=== PATIENT | female | born 1955 | race Caucasian/White ===

== ENCOUNTER 2016-10-03 06:48 | Day surgery (SDC) | payer BC ==
[2016-09-30 09:23] VITALS: BMI 25.8
[~2016-10-03 06:48] MED LIST: HYDROmorphone 1 MG/ML 1 ML SYRINGE IVP PRN; LACTATED RINGERS 1,000 ML IV SCH; MIDAZOLAM 2 MG/2 ML VIAL IV PRN; Pre Op ABX Message 1 EACH MISC MISCELLANE ONE
[2016-10-03] MEDS ORDERED: LIDOCAINE 1% 20 ML VIAL (10MG/ML) FOR IV START INTRADERMA ONE (07:17)
[2016-10-03] MEDS ORDERED: ONDANSETRON 4 MG/2 ML VIAL IVP ONE (07:22)
[2016-10-03] MEDS ORDERED: DEXAMETHASONE SOD PHOSPHATE 10 MG/ML 1 ML VIAL IV ONE (07:22)
[2016-10-03] MEDS ORDERED: fentaNYL (PF) 50 MCG/ML 2 ML AMP ONE (08:05)
[2016-10-03] MEDS ORDERED: PROPOFOL 10 MG/ML 20 ML VIAL IV ONE (08:05)
[2016-10-03] MEDS ORDERED: SUCCINYLCHOLINE CHLORIDE 100 MG/5 ML SYR IV ONE (08:05)
[2016-10-03] MEDS ORDERED: ePHEDrine 50 MG/ML 1 ML AMP ONE (08:05)
[2016-10-03] MEDS ORDERED: LIDOCAINE 1% INJ 10MG/ML (20 ML MDV) ONE (08:05)
[2016-10-03] MEDS ORDERED: MIDAZOLAM 2 MG/2 ML VIAL ONE (08:05)
[2016-10-03] MEDS ORDERED: BUPIVACAINE (PF) 0.25% 30 ML VIAL SQ ONE (08:35)
[2016-10-03] MEDS ORDERED: LACTATED RINGERS 1,000 ML IV ONE (09:00)
--- NOTE | 2016-10-03 09:09 | P.OP ---
Date of Procedure: 10/03/16 Preoperative Diagnosis: Postoperative Diagnosis: Procedure(s) Performed: PREOPERATIVE DIAGNOSIS: 1. Right knee medial meniscus tear 2. Right knee osteoarthritis, patellofemoral and medial POSTOPERATIVE DIAGNOSIS: 1. Right knee medial meniscus tear, severe posterior horn 2. Right knee osteoarthritis, patellofemoral, grade IV 3. Right knee osteoarthritis, medial, grade IV PROCEDURES PERFORMED: 1. Right knee arthroscopy, with partial medial meniscectomy (50)%, posterior horn 2. Right knee arthroscopic chondroplasty of patellofemoral and medial compartments 2. Right knee arthroscopic lysis of degenerative adhesions and partial synovectomy ANESTHESIA: legal administrative assistant: None COMPLICATIONS: none ESTIMATED BLOOD LOSS: Less than 10 ml DISPOSITION: To post-anesthesia care unit INDICATIONS: Angelita is a 61-year-old female with a history of right knee pain on the posterior medial side. She has definite arthritis of the medial and patellofemoral compartments. MRI findings are suspicious for meniscus tear involving the posterior horn of the meniscus medially. Patient presents to the operating room today for arthroscopy with trimming of the meniscus or repair as necessary as well as chondroplasty or smoothing of the articular surfaces. I have explained the procedure in detail as well as potential risks and complications as being inclusive of but not limited to: Bleeding, infection , scarring, discomfort, blood vessel and/or nerve damage, failure to relieve symptoms, need for further surgery, persistence or recurrence and/or worsening of symptoms, blood clot, pulmonary embolism, limp, , and other risks, including the need for knee replacement. The consent form has been signed. PROCEDURE: After appropriate consent was obtained, the patient was taken to the operating room and placed supine on the operating table. General anesthesia was initiated. The knee was examined under anesthesia. Medial collateral, lateral collateral, anterior and posterior cruciate ligaments were all intact. Range of motion was 0-120 with mild crepitus in the patellofemoral compartment. Mild effusion but no soft tissue swelling was noted. Prepping and draping of the operative knee was performed in the usual sterile fashion using ChloraPrep. Care was taken that all pressure points were adequately padded. Leg moura and pneumotourniquet were used. ``Time-out" was called according to [facility] standards, confirming patient identity, surgical procedure, side, and no IV antibiotics were administered. The surgical portals were placed directly next to the patellar tendon medially and laterally. Camera and instruments were carefully inserted into the knee and arthroscopy was performed. Patellofemoral joint was first inspected. Mild synovitis was seen, and was resected where it appeared particularly inflamed. Patellofemoral joint was noted to be arthritic, with grade 4 changes present over 60%. Chondroplasty was performed using a shaver, removing unstable cartilage elements and smoothing the surface to eliminate step-off. Trochlea showed similar grade 4 changes over 60% of its surface, especially centrally. Lateral compartment showed mildly degenerated hyaline cartilage without focal defect. Lateral meniscus was visualized and probed, the anterior horn showing some mild degenerative fraying. Popliteal hiatus was normal. No loose bodies. Medial compartment was then examined. Extensive medial meniscus tear was noted involving the posterior horn and appeared to be a stellate-type tear after visualization and probing. The meniscus tear was resected using a combination of basket forceps and shaver. Approximately 50 % of the meniscus was resected. The remaining meniscus was noted to be intact and stable, although severely degenerative. Medial compartment hyaline cartilage showed significant grade 4 osteoarthritic change with bone exposed over a 2 cm area on both the tibial plateau and femoral condyle. A chondral plasty was performed removing loose elements and smoothing to remove step-off. Cruciate ligaments were noted to be intact. Significant degenerative adhesions were present in the anterior compartment of the knee. These adhesions were removed using a shaver. No loose bodies or ganglion cysts were noted around the cruciate ligaments. Medial and lateral gutters showed no evidence of loose bodies, but some mild synovitis was present and was resected with a shaver. Portals were then closed with 4-0 Monocryl suture. A quantity of Marcaine solution was injected into the knee and around the portal sites. Steri-Strips were applied and tourniquet was deflated. Sterile dressing and light compressive dressing was applied using Webril and TIKA wrap. Patient tolerated the procedure well and taken to recovery room in stable condition. Sponge and needle counts were correct. Implants: Indications for Procedure: Operative Findings: Description of Procedure:
[2016-10-03 09:20] VITALS: TEMP 96.7
[2016-10-03 09:21] VITALS: RESP 16
[2016-10-03] MEDS ORDERED: KETOROLAC 30 MG/ML 1 ML VIAL IVP ONE (09:54)
[2016-10-03 10:15] VITALS: BP 121/69
[2016-10-03 10:31] VITALS: PULSE 58
== END 2016-10-03 10:50 | disposition home or self-care (01) ==
LOC: OR 06:48
PROVIDERS: ATTEND Orthopaedic Surgery
DX: S83.241A Other tear of medial meniscus, current injury, right knee, initial encounter (principal); X58.XXXA Exposure to other specified factors, initial encounter; M17.11 Unilateral primary osteoarthritis, right knee; E78.5 Hyperlipidemia, unspecified; I10 Essential (primary) hypertension; Z79.82 Long term (current) use of aspirin; Z79.899 Other long term (current) drug therapy; Z91.040 Latex allergy status; Z87.891 Personal history of nicotine dependence
CPT/HCPCS: 29881; J2250; J1100; J2405; J2001; J3010; J1885; J1170; J0330; J2704

== ENCOUNTER → 2017-01-28 | Outpatient (CLI) | payer BC ==
[2017-01-28 09:39] LABS: EKG EKG PERFORMED
[2017-01-28 10:07] LABS: CH 32.3; CHCM 34.5; HCT 40.8 % (34.0-46.0); HDW 2.53; HGB 13.7 gm/dL (11.4-16.0); MCH 31.6 pg (25.0-35.0); MCHC 33.6 g/dL (31.0-37.0); Mean Platelet Volume 7.4; RBC 4.34 m/uL (3.80-5.40); RDW 13.7 % (11.5-15.5); WBC 7.4 k/uL (3.8-10.6)
[2017-01-28 10:12] LABS: Partial Thromboplastin Time 24.1 sec (22.0-30.0); Prothrombin Time 10.1 sec (9.0-12.0)
[2017-01-28 10:42] LABS: ALT 26 U/L (9-52); AST 21 U/L (14-36); Alkaline Phosphatase 83 U/L (38-126); Anion Gap 10 mmol/L; Blood Urea Nitrogen 15 mg/dL (7-17); Calcium 9.9 mg/dL (8.4-10.2); Carbon Dioxide 27 mmol/L (22-30); Chloride 104 mmol/L (98-107); Glucose 96 mg/dL (74-99); Non-African American GFR(MDRD) 58 (>60 ml/min/1.73 sqM); Potassium 4.5 mmol/L (3.5-5.1); Sodium 141 mmol/L (137-145); Total Bilirubin 0.5 mg/dL (0.2-1.3); Total Protein 7.4 g/dL (6.3-8.2)
[2017-01-28 10:58] LABS: Appearance,Urine Clear (Clear); Bilirubin,Urine Negative (Negative); Glucose,Urine (UA) Negative (Negative); Ketones,Urine Negative (Negative); Leukocyte Esterase,Urine Negative (Negative); Nitrite,Urine Negative (Negative); Protein,Urine Negative (Negative); UA Billing (MACRO vs. MICRO) CHEM; Urobilinogen,Urine <2.0 mg/dL (<2.0)
== END | disposition home or self-care (01) ==
LOC: LABPAT 09:28
PROVIDERS: ATTEND Orthopaedic Surgery
DX: Z01.812 Encounter for preprocedural laboratory examination (principal)
CPT/HCPCS: 80053; 81003; 85027; 85610; 85730; 87070; 93005

== ENCOUNTER 2017-02-16 06:25 | Inpatient (IN) | payer BC ==
[2017-02-05 09:23] VITALS: BMI 25.8
[~2017-02-16 06:25] MED LIST changes: +ACETAMINOPHEN TAB 500 MG TAB PO ONE; +DEXAMETHASONE SOD PHOSPHATE 10 MG/ML 1 ML VIAL IV ONE; +HYDROmorphone 0.5 MG/0.5 ML SYRINGE IVP PRN; -HYDROmorphone 1 MG/ML 1 ML SYRINGE IVP PRN; -LACTATED RINGERS 1,000 ML IV SCH; +MELOXICAM 7.5 MG TAB PO ONE; -MIDAZOLAM 2 MG/2 ML VIAL IV PRN; +ONDANSETRON 4 MG/2 ML VIAL IVP ONE; -Pre Op ABX Message 1 EACH MISC MISCELLANE ONE; +TRANEXAMIC ACID 1,000 MG in SODIUM CHLORIDE 0.9% 100 ML IVPB ONE; +ceFAZolin 2 GM in SODIUM CHLORIDE 0.9% 100 ML IVPB ONE
[2017-02-16] MEDS: LACTATED RINGERS 1,000 ML IV SCH ×6 (07:30→23:15)
[2017-02-16] MEDS ORDERED: ROPIVACAINE 246.25 MG, EPINEPHrine 0.5 MG, KETOROLAC 30 MG, cloNIDine HCL/PF 80 MCG, WA... MISCELLANE ONE ×5 (07:43)
[2017-02-16] MEDS ORDERED: MIDAZOLAM 2 MG/2 ML VIAL ONE (07:57)
[2017-02-16] MEDS ORDERED: ePHEDrine SULFATE/0.9% NACL/PF 50 MG/5 ML SYRINGE IV ONE (07:57)
[2017-02-16] MEDS ORDERED: SODIUM CHLORIDE 0.9% 100 ML BAG ONE (07:57)
[2017-02-16] MEDS ORDERED: TRANEXAMIC ACID 1,000 MG/10 ML VIAL ONE (07:57)
[2017-02-16] MEDS ORDERED: diphenhydrAMINE 50 MG/ML 1 ML VIAL ONE (07:57)
[2017-02-16] MEDS ORDERED: fentaNYL (PF) 50 MCG/ML 2 ML AMP ONE (07:57)
[2017-02-16] MEDS ORDERED: PROPOFOL 10 MG/ML 20 ML VIAL IV ONE (07:57)
[2017-02-16] MEDS ORDERED: ceFAZolin 3,000 MG in SODIUM CHLORIDE 0.9% IRRIGATIO 3,000 ML IRRIGATION ONE (08:40)
[2017-02-16] MEDS ORDERED: LACTATED RINGERS 1,000 ML IV ONE (09:07)
--- NOTE | 2017-02-16 10:07 | P.OP ---
Date of Procedure: 02/16/17 Procedure(s) Performed: PREOPERATIVE DIAGNOSIS: Right knee severe osteoarthritis with genu varum POSTOPERATIVE DIAGNOSIS: Right knee severe osteoarthritis with genu varum; 2. Diminished bone quality/osteopenia/osteoporosis OPERATION: Right knee cemented total replacement arthroplasty. ANESTHESIA: Spinal ESTIMATED BLOOD LOSS: 100 ml. CREAM RIPENER: Aimee Sahu PA-C (assistance with: patient positioning, retraction, exposure, hemostasis, leg positioning, implantation, irrigation, closure, dressing) COMPLICATIONS: None apparent. COMPONENTS IMPLANTED: Persona system from [employer] with tibial stem extension INDICATIONS: Angelita is a 61-year-old female with a history of bilateral knee osteoarthritis. The patient's knees are end-stage, and conservative management has failed. The operation of right knee replacement has been discussed at length in the office, as well as potential risks and complications. These are inclusive of, but not limited to: bleeding, infection, scarring, discomfort, blood vessel and nerve damage, need for further surgery, failure to relieve symptoms, persistence, recurrence, or worsening of problems, loosening, dislocation, wear, blood clot, pulmonary embolism, , gait dysfunction, stiffness, and other risks as discussed in the office. The patient elects to proceed and the consent form has been signed. PROCEDURE: The patient was taken to the operating room and positioned on the operating room table in the supine position. Anesthesia was initiated. Care was taken to make sure that all pressure points were adequately padded. The operative lower extremity was prepped and draped in the usual aseptic fashion using ChloraPrep. Ioban drape was used for the case and the patient received intravenous antibiotics within one hour of the incision. A pneumotourniquet and leg moura were used for the case. The limb was exsanguinated with an Esmarch bandage and the tourniquet was inflated to 350 mmHg. Time-out was called confirming the patient's identity, side, procedure and administration of antibiotics. The incision was then created midline directly over the knee, carried down through skin and into the subcutaneous tissues and down to fascia. Full thickness subcutaneous medial flap was developed. Medial parapatellar arthrotomy was performed and the interior of the knee was inspected. There was end-stage osteoarthritis of the knee with a mild to moderate genu varum type deformity. The fat pad was excised and proximal medial release on the tibia was completed using meticulous dissection and a curved osteotome. The anterior cruciate ligament was taken down. Note was made of significant attrition of the anterior and significant degenerative appearance of the posterior cruciate ligaments. The exposure was excellent. The knee was flexed 90 degrees and the patella was everted. A spot was chosen on the femur approximately 1 cm anterior to the posterior cruciate ligament insertion and an intramedullary hole was created within the femur. The intramedullary guide was then set to 5 degrees of valgus. The distal cutting block was attached and pinned into position. An appropriate amount of distal femoral resection was set. The oscillating saw was then used to make the distal femoral cut. This cut was confirmed to be flat with the flat end of an osteotome. The retractors were placed around the tibia and the tibial surface was addressed. The angle and depth of resection was adjusted using an extramedullary cutting guide. The guide had a built-in 3 degree posterior slope cut. Once the cutting guide was adjusted appropriately and in line with the axis of the tibia and confirmed to be in good position in relation to the second metatarsal and transmalleolar axis, the tibial cut was then created with protection of the posterior neurovascular structures and the collateral ligaments. Note was made of diminished bone quality and therefore a short tibial stem extension was planned. The tibial cut surface was removed and sized. Femoral sizing was then accomplished using anterior referencing. Care was taken to analyze the posterior condyles for signs of deficiency or severe wear, and adjustments to the guide were made, as appropriate. 3 degree external rotation pins were placed. The cutting jig for the femur was applied to these pins. The planned cuts were further analyzed prior to performing them with the oscillating saw. No femoral notching was produced. Bone fragments were removed and the cut surfaces were finished, as necessary, with a reciprocating saw. Spacer block technique was then used to confirm that the flexion and extension gaps were equal. Soft tissue releases and adjustment of the tibial and/or femoral cuts were made, as necessary, until the gaps were equal. This included release of the posterior cruciate ligament, which was tight in this patient and , if left unreleased, would have resulted in poor kinematics and possibly early loosening. The femur was then further finished for a posterior cruciate ligament substituting component. Patellar resurfacing was performed using a reamer. The size of the required patellar component was estimated and the patellar surface was then reamed down to a residual thickness which would recreate the [place] thickness with the component. The placement of the patellar component was influenced by the degree of patellar subluxation, if any, noted on the preoperative x-rays. Prior to placing trial components, anesthetic solution consisting of ropivicaine with epinephrine, ketorolac, and clonidine was injected carefully and methodically in a grid pattern using aspiration technique into the soft tissue around the knee circumferentially, starting with the deeper tissues first and progressing to fascia, and then finally the skin/subcutaneous tissue. Particular care was taken when injecting the posterior capsule. The trial components were inserted. The tibial tray was allowed to self center and the patella was noted to track very well. The position of the tibial component was marked and the tibia was then finished for a stemmed tibial component. Cement was mixed on the back table and applied to the final components. Trial components were removed and the cut surfaces of the bone were pulse lavaged thoroughly and dried. Cement was then applied to the tibial surface and pressurized into the surface using finger pressurization technique. The tibial component with stem extension was then applied and excess cement was removed after it was impacted securely and noted to be flush with the cut surface. In similar fashion, the cement was applied to the cut femoral surface, pressurized in using finger pressurization and the component was impacted into place. Excess cement was removed. The polyethylene spacer was then implanted and locked into position. The patellar component was then applied in similar technique and a patellar clamp was used to hold the patella in place as the cement hardened. Once the cement had fully hardened, the knee was reinspected. Any other cement extrusion was removed and final kinematic testing showed range of motion from 0 to 130 degrees with excellent stability, both medially and laterally and appropriate alignment of the leg. Patellar tracking was excellent. The knee was then thoroughly pulse lavaged with normal saline. The tourniquet was deflated and hemostasis was obtained with electrocautery and IV tranexamic acid, 1 g given at the start of the operation and 1 g at the start of closure. Closure was with #2 Ethibond in the fascia/capsule and supplemented with #2 Quill, 2-0 Vicryl suture was used for the subcutaneous tissues and 3-0 Quill for the skin. Dermabond/Steri-Strips were then applied. A lightly compressive dressing was applied using Webril and an Abhinav wrap. The patient was then transferred to [facility] and taken to the recovery room in stable condition. Sponge and needle counts were correct.
[2017-02-16] MEDS ORDERED: MAGNESIUM HYDROXIDE 2,400 MG/10 ML CUP PO PRN (10:12)
[2017-02-16] MEDS ORDERED: ONDANSETRON 4 MG/2 ML VIAL IVP PRN (10:12)
[2017-02-16] MEDS ORDERED: NA PHOS,M-B/NA PHOS,DI-BA 133 ML ENEMA RECTAL PRN (10:12)
[2017-02-16] MEDS ORDERED: hydrOXYzine PAMOATE 25 MG CAP PO PRN (10:12)
[2017-02-16] MEDS ORDERED: ACETAMINOPHEN TAB 325 MG TAB PO PRN (10:12)
[2017-02-16] MEDS ORDERED: NALOXONE 0.4 MG/ML 1 ML VIAL IV PRN (10:12)
[2017-02-16] MEDS ORDERED: BISACODYL 10 MG SUPP RECTAL PRN (10:12)
[2017-02-16] MEDS ORDERED: HYDROmorphone 0.5 MG/0.5 ML SYRINGE IVP PRN ×2 (10:12)
[2017-02-16 10:23] VITALS: RESP 16
--- NOTE | 2017-02-16 11:07 | XR ---
EXAMINATION TYPE: XR knee limited RT DATE OF EXAM: 02/16/2017 COMPARISON: NONE TECHNIQUE: Two views submitted HISTORY: Post op FINDINGS: There is a prosthetic knee in near anatomic alignment. There is soft tissue edema and emphysema. IMPRESSION: 1. Postoperative change. Appears in near-anatomic alignment
--- NOTE | 2017-02-16 14:34 | P.CONS ---
History of Present Illness - Reason for Consult postoperative complication management - History of Present Illness patient was admitted for elective right knee arthroplasty successfully underwent surgery patient denied any fever, chills, nausea, vomiting patient denied any dysuria fever chills no postoperative complications. Patient is in metoprolol as a preventative measure for postoperative myocardial infarction, which is appropriate although patient's migraine exacerbations is significantly low since beta marisol because of which patient is wishing to continue that medication. Review of Systems REVIEW OF SYSTEMS: CONSTITUTIONAL: No fever, no malaise, no fatigue. HEENT: No recent visual problems or hearing problems. Denied any sore throat. CARDIOVASCULAR: No chest pain, orthopnea, PND, no palpitations, no syncope. PULMONARY: No shortness of breath, no cough, no hemoptysis. GASTROINTESTINAL: No diarrhea, no nausea, no vomiting, no abdominal pain. Normoactive bowel sounds. NEUROLOGICAL: No headaches, no weakness, no numbness. HEMATOLOGICAL: Denies any bleeding or petechiae. GENITOURINARY: Denies any burning micturition, frequency, or urgency. MUSCULOSKELETAL/RHEUMATOLOGICAL: Denies any joint pain, swelling, or any muscle pain. ENDOCRINE: Denies any polyuria or polydipsia. The rest of the 14-point review of systems is negative. Past Medical History Past Medical History: Hyperlipidemia, Osteoarthritis (OA), Skin Disorder Additional Past Medical History / Comment(s): Migraines, had iovera tx rt knee , dry eyes History of Any Multi-Drug Resistant Organisms: None Reported Past Surgical History: Adenoidectomy, Breast Surgery, Hysterectomy, Orthopedic Surgery, Tonsillectomy Additional Past Surgical History / Comment(s): L Breast I&D; cysts above rt eye removed; colonoscopies, rt knee arthrscopy Past Anesthesia/Blood Transfusion Reactions: Motion Sickness Smoking Status: Former smoker - Past Family History Father Family Medical History: Cancer Additional Family Medical History / Comment(s): colon Mother Family Medical History: Cancer Additional Family Medical History / Comment(s): thyrioid Medications and Allergies Home Medications Medication Instructions Recorded Confirmed Type Aspirin 81 mg PO DAILY 09/30/16 02/16/17 History Fish Oil/Dha/Epa [Fish Oil 1,200 1 cap PO DAILY 09/30/16 02/16/17 History mg Fish Oil] Magnesium 400 mg PO DAILY 09/30/16 02/16/17 History Rizatriptan Benzoate [Maxalt] 10 mg PO DAILY PRN 09/30/16 02/16/17 History Simvastatin 40 mg PO HS 09/30/16 02/16/17 History Ubidecarenone [Co Q-10] 200 mg PO DAILY 09/30/16 02/16/17 History Loratadine [Claritin] 10 mg PO DAILY PRN 10/03/16 02/16/17 History Cholecalciferol [Vitamin D3] 1,000 unit PO DAILY 02/05/17 02/16/17 History Glucosam/Corbin-Msm1/C/Ry/Bosw 1 tab PO BID 02/05/17 02/16/17 History [Glucosamine-Chondroitin Tablet] Metoprolol Tartrate [Lopressor] 12.5 mg PO HS 02/05/17 02/16/17 History Naproxen Sodium [Aleve] 220 mg PO BID 02/05/17 02/16/17 History Aspirin 325 mg PO BID #120 tab 02/16/17 Rx HYDROcodone/APAP 5-325MG [[place] 1 - 2 each PO Q4-6H PRN #90 tab 02/16/17 Rx 5-325] HYDROcodone/APAP 7.5-325MG [[place] 1 - 2 tab PO Q6HR PRN 02/16/17 02/16/17 History 7.5] Sennosides-Docusate Sodium 1 tab PO BID #60 tablet 02/16/17 Rx [Senokot-S] Allergies Allergy/AdvReac Type Severity Reaction Status Date / Time latex Allergy Anaphylaxis Verified 02/16/17 06:48 Physical Exam Vitals: Vital Signs Temp Pulse Resp BP Pulse Ox 02/16/17 11:00 67 16 121/64 100 02/16/17 10:45 68 16 123/64 100 02/16/17 10:31 84 16 128/62 97 02/16/17 10:20 89 16 111/57 95 02/16/17 10:11 97.8 F 87 16 115/55 93 L 02/16/17 07:03 97.7 F 82 18 149/74 99 Intake and Output 02/15/17 02/16/17 02/16/17 22:59 06:59 14:59 Intake Total 1401 Output Total 20 Balance 1381 Intake: IV 1401 Output: Estimated Blood Loss 20 PHYSICAL EXAMINATION: GENERAL: The patient is alert and oriented x3, not in any acute distress. Well developed, well nourished. HEENT: Pupils are round and equally reacting to light. EOMI. No scleral icterus. No conjunctival pallor. Normocephalic, atraumatic. No pharyngeal erythema. No thyromegaly. CARDIOVASCULAR: S1 and S2 present. No murmurs, rubs, or gallops. PULMONARY: Chest is clear to auscultation, no wheezing or crackles. ABDOMEN: Soft, nontender, nondistended, normoactive bowel sounds. No palpable organomegaly. MUSCULOSKELETAL: deferred to orthopedic surgery EXTREMITIES: No cyanosis, clubbing, or pedal edema. NEUROLOGICAL: Gross neurological examination did not reveal any focal deficits. SKIN: No rashes. Assessment and Plan Plan: #1 postoperative day 0 elective right knee arthroplasty: Pain management and DVT prophylaxis as per primary service. #2 migraine without any acute exacerbation continue with metoprolol. #3hyperlipidemia patient can be resumed on statin. #4 severe osteoarthritis: Patient will benefit from vitamin D and calcium Supplementation at home thank you for letting me participate in the patient's care will can you to follow on as-needed basis.
[2017-02-16] MEDS: ceFAZolin 2 GM in SODIUM CHLORIDE 0.9% 100 ML IVPB SCH (17:00)
[2017-02-16] MEDS: ASPIRIN 325 MG TAB PO SCH (20:09)
[2017-02-16] MEDS: HYDROcodone/APAP 5-325MG 1 EACH TAB PO PRN (20:09)
[2017-02-16] MEDS ORDERED: SENNOSIDES-DOCUSATE SODIUM 1 EACH TAB PO SCH (21:00)
[2017-02-16] MEDS ORDERED: TEMAZEPAM 15 MG CAP PO PRN (22:00)
[2017-02-17] MEDS: ceFAZolin 2 GM in SODIUM CHLORIDE 0.9% 100 ML IVPB SCH (00:20)
[2017-02-17 02:07] VITALS: TEMP 98.2
[2017-02-17] MEDS: HYDROcodone/APAP 5-325MG 1 EACH TAB PO PRN ×4 (02:34→13:37)
[2017-02-17 07:18] LABS: Basophils % (A) 0 %; CH 31.7; CHCM 32.3; Eosinophils % (A) 0 %; HCT 34.1 % (34.0-46.0); HDW 2.35; HGB 11.1 gm/dL (11.4-16.0); Luc # (Auto) 0.12; Luc % (Auto) 1; Lymphocytes # (A) 1.7 k/uL (1.0-4.8); Lymphocytes % (A) 16 %; MCHC 32.5 g/dL (31.0-37.0); MCV 98.6 fL (80.0-100.0); Mean Platelet Volume 7.4; Monocytes # (A) 0.7 k/uL (0-1.0); Monocytes % (A) 6 %; Neutrophils # (A) 8.7 k/uL (1.3-7.7); Neutrophils % (A) 77 %; RBC 3.46 m/uL (3.80-5.40); WBC 11.3 k/uL (3.8-10.6); WBC (Perox) 11.95
[2017-02-17] MEDS: ASPIRIN 325 MG TAB PO SCH (08:35)
[2017-02-17] MEDS ORDERED: MELOXICAM 7.5 MG TAB PO SCH (09:00)
--- NOTE | 2017-02-17 09:36 | P.DS ---
Providers Date of admission: 02/16/17 06:25 Expected date of discharge: 02/17/17 Attending physician: Price Maynard Consults: 02/16/17 10:12 Consult Physician Routine Consulting Provider: Brenda Fine Consult Reason/Comments: medical management Do you want consulting provider notified?: Yes Primary care physician: Sara Norris Procedures: Patient was admitted to the OR on 02/16/2017 to undergo right total knee arthroplasty. She had failed conservative measures as an outpatient and desired proceed with surgical intervention. She underwent the above procedure which she tolerated well without complication. Her postoperative hospital course has remained without competition. On day of discharge she is afebrile, vital signs stable, labs within acceptable ranges, wound is benign, neurovascular status intact, abdomen soft and nontender, calf soft and nontender , adequate perfusion distally, denying new complaints. Review of systems is negative for numbness, tingling, fever, chills, chest pain, shortness of breath , nausea, vomiting, dizziness, headaches, slurred speech or other. Patient Condition at Discharge: Good Plan - Discharge Summary New Discharge Prescriptions: New Aspirin 325 mg PO BID #120 tab HYDROcodone/APAP 5-325MG [[place] 5-325] 1 - 2 each PO Q4-6H PRN #90 tab PRN Reason: Pain Sennosides-Docusate Sodium [Senokot-S] 1 tab PO BID #60 tablet No Action Ubidecarenone [Co Q-10] 200 mg PO DAILY Simvastatin 40 mg PO HS Rizatriptan Benzoate [Maxalt] 10 mg PO DAILY PRN PRN Reason: migraines Magnesium 400 mg PO DAILY Fish Oil/Dha/Epa [Fish Oil 1,200 mg Fish Oil] 1 cap PO DAILY Aspirin 81 mg PO DAILY Loratadine [Claritin] 10 mg PO DAILY PRN PRN Reason: Allergy Symptoms Naproxen Sodium [Aleve] 220 mg PO BID Glucosam/Corbin-Msm1/C/Ry/Bosw [Glucosamine-Chondroitin Tablet] 1 tab PO BID Cholecalciferol [Vitamin D3] 1,000 unit PO DAILY Metoprolol Tartrate [Lopressor] 12.5 mg PO HS HYDROcodone/APAP 7.5-325MG [[place] 7.5] 1 - 2 tab PO Q6HR PRN PRN Reason: Pain Discharge Medication List Aspirin 81 mg PO DAILY 05/23/17 [History] Fish Oil/Dha/Epa [Fish Oil 1,200 mg Fish Oil] 1 cap PO DAILY 09/30/16 [History] Magnesium 400 mg PO DAILY 09/30/16 [History] Rizatriptan Benzoate [Maxalt] 10 mg PO DAILY PRN 09/30/16 [History] Simvastatin 40 mg PO HS 09/30/16 [History] Ubidecarenone [Co Q-10] 200 mg PO DAILY 09/30/16 [History] Loratadine [Claritin] 10 mg PO DAILY PRN 10/03/16 [History] Cholecalciferol [Vitamin D3] 1,000 unit PO DAILY 02/05/17 [History] Glucosam/Corbin-Msm1/C/Ry/Bosw [Glucosamine-Chondroitin Tablet] 1 tab PO BID [History] Metoprolol Tartrate [Lopressor] 12.5 mg PO HS 02/05/17 [History] Naproxen Sodium [Aleve] 220 mg PO BID 02/05/17 [History] Aspirin 325 mg PO BID #120 tab 02/16/17 [Rx] HYDROcodone/APAP 5-325MG [[place] 5-325] 1 - 2 each PO Q4-6H PRN #90 tab 02/16/17 [Rx] HYDROcodone/APAP 7.5-325MG [[place] 7.5] 1 - 2 tab PO Q6HR PRN 02/16/17 [History] Sennosides-Docusate Sodium [Senokot-S] 1 tab PO BID #60 tablet 02/16/17 [Rx] Follow up Appointment(s)/Referral(s): Aimee Sahu, PAC [PHYSIC[facility]] - 2 Weeks Ambulatory/Diagnostic Orders: Continuous Passive Motion (CPM) Machine [DME.AMB1] Time Frame: 3 Weeks, Facility : [facility], Location: Case Management Activity/Diet/Wound Care/Special Instructions: May bear wt as tolerated with walker. May shower if no drainage from incision. CPM 5-6h daily. Discharge Disposition: HOME WITH HOME HEALTH SERVICES
[2017-02-17] MEDS ORDERED: MULTIVITAMINS, THERA 1 EACH TAB PO SCH (12:00)
[2017-02-17 12:20] VITALS: BP 115/65; PULSE 80
== END 2017-02-17 14:00 | disposition home health service (06) | DRG 470 ==
LOC: 2ORMAIN 06:25 → 3SUR 10:08
PROVIDERS: ADMIT Orthopaedic Surgery; ATTEND Orthopaedic Surgery
PROC: 0SRC0J9 Replacement of Right Knee Joint with Synthetic Substitute, Cemented, Open Approach (ICD-10-PCS; principal; 2017-02-16 08:00)
DX: M17.0 Bilateral primary osteoarthritis of knee (principal); E78.5 Hyperlipidemia, unspecified; Z79.82 Long term (current) use of aspirin; Z79.899 Other long term (current) drug therapy; Z91.040 Latex allergy status; Z87.891 Personal history of nicotine dependence; G43.909 Migraine, unspecified, not intractable, without status migrainosus; M81.0 Age-related osteoporosis without current pathological fracture; Z90.01 Acquired absence of eye; M21.161 Varus deformity, not elsewhere classified, right knee
CPT/HCPCS: 85025; 88300

== ENCOUNTER 2018-04-16 09:37 | Day surgery (SDC) | payer BC ==
[2018-04-14 13:33] VITALS: BMI 27.4
[~2018-04-16 09:37] MED LIST changes: -ACETAMINOPHEN TAB 500 MG TAB PO ONE; -DEXAMETHASONE SOD PHOSPHATE 10 MG/ML 1 ML VIAL IV ONE; -HYDROmorphone 0.5 MG/0.5 ML SYRINGE IVP PRN; +LACTATED RINGERS 1,000 ML IV SCH; -MELOXICAM 7.5 MG TAB PO ONE; -ONDANSETRON 4 MG/2 ML VIAL IVP ONE; -TRANEXAMIC ACID 1,000 MG in SODIUM CHLORIDE 0.9% 100 ML IVPB ONE; -ceFAZolin 2 GM in SODIUM CHLORIDE 0.9% 100 ML IVPB ONE
[2018-04-16 10:36] VITALS: RESP 16; TEMP 98.2
[2018-04-16] MEDS ORDERED: PROPOFOL 10 MG/ML 20 ML VIAL IV ONE (11:26)
--- NOTE | 2018-04-16 11:43 | P.PCN ---
Date of Procedure: 04/16/18 Procedure(s) Performed: BRIEF HISTORY: Patient is a 62-year-old pleasant white male, scheduled for an elective colonoscopy as a part of screening for colorectal neoplasia. She does have colon cancer in father diagnosed at age 63. PROCEDURE PERFORMED: Colonoscopy. PREOPERATIVE DIAGNOSIS: Screening for colon cancer/family history of colon cancer. IV sedation per Anesthesia. PROCEDURE: After informed consent was obtained, the patient, was brought into the endoscopy unit. IV sedation was administered by Anesthesia under continuous monitoring. Digital rectal examination was normal. Initially the Olympus CF- 160 flexible video colonoscope was then inserted in the rectum, gradually advanced into the cecum without any difficulty. Careful examination was performed as the scope was gradually being withdrawn. Ileocecal valve and the appendiceal orifice were visualized and appeared normal. Prep was excellent. Mucosa of the cecum, ascending colon, transverse colon, descending colon, sigmoid colon, and rectum appeared normal. Retroflexion was performed in the rectum and no lesions were seen. The patient tolerated the procedure well. IMPRESSION: Normal-appearing colon from rectum to cecum with no evidence of colorectal neoplasia. RECOMMENDATIONS: Findings of this examination were discussed with the patient well as her family. She was advised to have a repeat screening colonoscopy in 5 years because of the family history of colon cancer.
[2018-04-16 12:03] VITALS: BP 116/78; PULSE 69
== END 2018-04-16 12:25 | disposition home or self-care (01) ==
LOC: ORWHC2ENDO 09:37
PROVIDERS: ATTEND Internal Medicine Gastroenterology
DX: Z12.11 Encounter for screening for malignant neoplasm of colon (principal); Z80.0 Family history of malignant neoplasm of digestive organs; I10 Essential (primary) hypertension; E78.5 Hyperlipidemia, unspecified; M19.90 Unspecified osteoarthritis, unspecified site; Z79.899 Other long term (current) drug therapy; Z79.82 Long term (current) use of aspirin; Z91.040 Latex allergy status
CPT/HCPCS: J2704; G0105

== ENCOUNTER → 2018-09-20 | Outpatient (CLI) | payer BC ==
--- NOTE | 2018-09-21 14:36 | MM ---
Reason for exam: screening (asymptomatic). Last mammogram was performed 1 year and 5 months ago. History: Patient is postmenopausal. Family history of breast cancer in maternal grandmother and breast cancer in maternal cousin. Physical Findings: A clinical breast exam by your physician is recommended on an annual basis and results should be correlated with mammographic findings. MG 3D Screening Mammo W/Cad Bilateral CC and MLO view(s) were taken. Prior study comparison: April 15, 2017, bilateral MG 3d screening mammo w/cad. March 12, 2016, mammogram, performed at [facility]. The breast tissue is heterogeneously dense. This may lower the sensitivity of mammography. No suspicious abnormality. No significant changes when compared with prior studies. ASSESSMENT: Negative, BI-RAD 1 RECOMMENDATION: Routine screening mammogram of both breasts in 1 year.
== END | disposition home or self-care (01) ==
LOC: RADMAMWWP 10:03
PROVIDERS: ATTEND Internal Medicine
DX: Z12.31 Encounter for screening mammogram for malignant neoplasm of breast (principal)
CPT/HCPCS: 77063; 77067

== ENCOUNTER → 2020-03-16 | Outpatient (CLI) | payer MEDICARE ==
--- NOTE | 2020-03-19 11:03 | MM ---
Reason for exam: screening (asymptomatic). Last mammogram was performed 1 year and 6 months ago. History: Patient is postmenopausal. Family history of breast cancer in maternal grandmother and breast cancer in maternal cousin. Physical Findings: A clinical breast exam by your physician is recommended on an annual basis and results should be correlated with mammographic findings. MG 3D Screening Mammo W/Cad Bilateral CC and MLO view(s) were taken. Prior study comparison: September 20, 2018, bilateral MG 3d screening mammo w/cad. April 15, 2017, bilateral MG 3d screening mammo w/cad. There are scattered fibroglandular densities. There is no discrete abnormality. No significant changes when compared with prior studies. ASSESSMENT: Negative, BI-RAD 1 RECOMMENDATION: Routine screening mammogram of both breasts in 1 year.
== END | disposition home or self-care (01) ==
LOC: RADMAMWWP 10:47
PROVIDERS: ATTEND Internal Medicine
DX: Z12.31 Encounter for screening mammogram for malignant neoplasm of breast (principal)
CPT/HCPCS: 77063; 77067

== ENCOUNTER → 2021-03-22 | Outpatient (CLI) | payer MEDICARE ==
--- NOTE | 2021-03-25 11:03 | MM ---
Reason for exam: screening (asymptomatic). Last mammogram was performed 1 year ago. History: Patient is postmenopausal. Family history of breast cancer in maternal grandmother at age 30 and breast cancer in maternal cousin at age 30. Physical Findings: A clinical breast exam by your physician is recommended on an annual basis and results should be correlated with mammographic findings. MG 3D Screening Mammo W/Cad Bilateral CC and MLO view(s) were taken. Prior study comparison: March 16, 2020, bilateral MG 3d screening mammo w/cad. September 20, 2018, bilateral MG 3d screening mammo w/cad. There are scattered fibroglandular densities. No significant changes when compared with prior studies. ASSESSMENT: Benign, BI-RAD 2 RECOMMENDATION: Routine screening mammogram of both breasts in 1 year.
== END | disposition home or self-care (01) ==
LOC: RADMAMWWP 07:13
PROVIDERS: ATTEND Internal Medicine
DX: Z12.31 Encounter for screening mammogram for malignant neoplasm of breast (principal); Z78.0 Asymptomatic menopausal state; Z80.3 Family history of malignant neoplasm of breast
CPT/HCPCS: 77063; 77067

== ENCOUNTER → 2022-04-18 | Outpatient (CLI) | payer MEDICARE ==
--- NOTE | 2022-04-21 10:36 | MM ---
Reason for Exam: Screening (asymptomatic). Last mammogram was performed 1 year(s) and 1 month(s) ago. Patient History: Menarche at age 9. First Full-Term at age 19. Hysterectomy at age 36. Postmenopausal. Patient has history of breast feeding. Maternal grandmother had breast cancer, age 30. Maternal cousin had breast cancer, age 30. Risk Values: [place] 5 year model risk: 1.7%. NCI Lifetime model risk: 5.7%. Prior Study Comparison: 09/20/2018 Bilateral Screening Mammogram, [facility]. 03/16/2020 Bilateral Screening Mammogram, [facility]. 03/22/2021 Bilateral Screening Mammogram, [facility]. Tissue Density: There are scattered fibroglandular densities. Findings: Analyzed By CAD. There is no suspicious group of microcalcifications or new suspicious mass in either breast. Overall Assessment: Negative, BI-RAD 1 Management: Screening Mammogram of both breasts in 1 year. A clinical breast exam by your physician is recommended on an annual basis and results should be correlated with mammographic findings. [facility] will attempt to contact patient to return for supplemental views and ultrasound if indicated. Electronically signed and approved by: Ron Winston DO
== END | disposition home or self-care (01) ==
LOC: RADMAMWWP 09:42
PROVIDERS: ATTEND Internal Medicine
DX: Z12.31 Encounter for screening mammogram for malignant neoplasm of breast (principal); Z78.0 Asymptomatic menopausal state; Z80.3 Family history of malignant neoplasm of breast
CPT/HCPCS: 77063; 77067

== ENCOUNTER → 2023-04-10 | Outpatient (CLI) | payer MEDICARE ==
[2023-04-10 11:03] LABS: INR 0.9 (<1.2); Partial Thromboplastin Time 25.1 sec (22.0-30.0); Prothrombin Time 10.3 sec (10.0-12.5)
[2023-04-10 15:36] LABS: HCT 41.5 % (37.2-46.3); HGB 13.4 g/dL (12.0-15.0); MCH 30.8 pg (27.0-32.0); MCHC 32.3 g/dL (32.0-37.0); MCV 95.4 FL (80.0-97.0); Mean Platelet Volume 9.8 FL (9.5-12.2); NRBC Per 100 WBC 0 X 10*3/uL (0.00-0.01); Platelet Count 365 X 10*3/uL (140-440); RBC 4.35 X 10*6/uL (4.10-5.20); RDW 12.8 % (11.5-14.5); WBC 6.23 X 10*3/uL (4.50-10.00)
[2023-04-10 15:58] LABS: ALT 12 U/L (8-44); AST 19 U/L (13-35); Albumin 4.6 g/dL (3.8-4.9); Albumin/Globulin Ratio 1.92 Ratio (1.60-3.17); Alkaline Phosphatase 90 U/L (41-126); Blood Urea Nitrogen 15.3 mg/dL (9.0-27.0); Calcium 10.1 mg/dL (8.7-10.3); Carbon Dioxide 26.4 mmol/L (21.6-31.8); Chloride 104 mmol/L (96-109); Globulin 2.4 g/dL (1.6-3.3); Glucose 96 mg/dL (70-110); Potassium 4.3 mmol/L (3.5-5.5); Sodium 141 mmol/L (135-145); Total Bilirubin 0.3 mg/dL (0.3-1.2)
[2023-04-10 16:30] LABS: Appearance,Urine Clear (Clear); Bilirubin,Urine Negative (Negative); Blood,Urine Negative (Negative); Color,Urine Yellow (Yellow); Ketones,Urine Negative (Negative); Nitrite,Urine Negative (Negative); Specific Gravity,Urine 1.008 (1.001-1.030); Urobilinogen,Urine 0.2 E.U./DL
== END | disposition home or self-care (01) ==
LOC: LABPAT 09:44
PROVIDERS: ATTEND Orthopaedic Surgery
DX: Z01.812 Encounter for preprocedural laboratory examination (principal); I10 Essential (primary) hypertension; M16.12 Unilateral primary osteoarthritis, left hip; E78.00 Pure hypercholesterolemia, unspecified; E55.9 Vitamin D deficiency, unspecified; R53.83 Other fatigue
CPT/HCPCS: 36415; 80053; 81003; 85027; 85610; 85730; 86850; 86900; 86901; 87070; 93005

== ENCOUNTER 2023-04-22 13:55 | Day surgery (SDC) | payer MEDICARE ==
[2023-04-16 11:02] VITALS: BMI 28.5
[~2023-04-22 13:55] MED LIST changes: +DEXAMETHASONE SOD PHOSPHATE 4 MG/ML 1 ML VIAL IV ONE; -LACTATED RINGERS 1,000 ML IV SCH; +LIDOCAINE 1% (10MG/ML) FOR IV START INTRADERMA PRN; +MIDAZOLAM 2 MG/2 ML VIAL IV PRN; +ONDANSETRON 4 MG/2 ML VIAL IVP ONE; +ONDANSETRON 4 MG/2 ML VIAL IVP PRN; +TRANEXAMIC 1,000 MG/100ML-NACL 1,000 MG in SALINE 1 100ML.BAG IV PRN; +TRANEXAMIC 1,000 MG/100ML-NACL 1,000 MG in SALINE 1 100ML.BAG IVPB PRN
[2023-04-22] MEDS: oxyCODONE ER 10 MG TAB.ER.12H PO PRN ×2 (14:45→14:52)
[2023-04-22] MEDS: ACETAMINOPHEN TAB 500 MG TAB PO PRN ×2 (14:45→14:52)
[2023-04-22] MEDS: DOCUSATE 100 MG CAP PO PRN ×2 (14:45→14:52)
[2023-04-22] MEDS: DEXAMETHASONE SOD PHOSPHATE 10 MG/ML 1 ML VIAL IV PRN ×2 (14:46→14:52)
[2023-04-22] MEDS: FAMOTIDINE 20 MG/2 ML VIAL IVP PRN ×2 (14:47→14:52)
[2023-04-22] MEDS: KETOROLAC 15 MG/ML 1 ML VIAL IVP PRN ×2 (14:48→14:52)
[2023-04-22] MEDS: LACTATED RINGERS 1,000 ML IV SCH ×2 (14:52→20:08)
[2023-04-22] MEDS ORDERED: MIDAZOLAM 2 MG/2 ML VIAL IVP ONE (14:56)
[2023-04-22] MEDS ORDERED: fentaNYL (PF) 50 MCG/1 ML VIAL IVP ONE (14:57)
[2023-04-22] MEDS ORDERED: GLYCOPYRROLATE 0.2 MG/ML 2 ML VIAL ONE (16:13)
[2023-04-22] MEDS ORDERED: TRANEXAMIC 1,000 MG/100ML-NACL PREMIX BAG ONE (16:13)
[2023-04-22] MEDS ORDERED: fentaNYL (PF) 50 MCG/ML 2 ML AMP ONE (16:13)
[2023-04-22] MEDS ORDERED: LIDOCAINE 1% INJ 10MG/ML (20 ML MDV) ONE (16:13)
[2023-04-22] MEDS ORDERED: PROPOFOL 10 MG/ML 20 ML VIAL IV ONE (16:13)
[2023-04-22] MEDS ORDERED: ROPIVACAINE 5 MG/ML 30 ML VIAL ONE (16:13)
[2023-04-22] MEDS ORDERED: MIDAZOLAM 2 MG/2 ML VIAL ONE (16:13)
[2023-04-22] MEDS ORDERED: SUCCINYLCHOLINE CHLORIDE 200 MG/10 ML VIAL IV ONE (16:13)
[2023-04-22] MEDS ORDERED: NEOSTIGMINE 1 MG/ML 10 ML VIAL ONE (16:13)
[2023-04-22] MEDS ORDERED: ROCURONIUM 10 MG/ML (5 ML VIAL) IV ONE (16:13)
[2023-04-22] MEDS: ROPIVACAINE/EPI/CLONIDINE/KET 50 ML SYRINGE MISCELLANE PRN ×2 (16:58→18:10)
[2023-04-22] MEDS ORDERED: LACTATED RINGERS 1,000 ML IV ONE ×2 (16:59)
--- NOTE | 2023-04-22 18:18 | P.ANPRN ---
Procedure Note - Anesthesia - Nerve Block Performed Left Jose R Single Date of Procedure: 04/22/23 Procedure Start Time: 14:56 Procedure Stop Time: 15:10 Location of Patient: PreOp Indication: Acute Post-Operative Pain, Requested by Surgeon Sedation Type: Sedate with meaningful contact maintained Preparation: Sterile Prep Position: Supine Needle Types: Pajunk Needle Gauge: 21 Ultrasound used to visualize needle placement: Yes Ultrasound used to observe medication spread: Yes Injectate: 0.5% Ropivacaine (see comment for volume) Blood Aspirated: No Pain Paresthesia on Injection Noted: No Resistance on Injection: Normal Image Stored and Saved: Yes Events: Uneventful and Well Tolerated
[2023-04-22] MEDS ORDERED: diazePAM 5 MG TAB PO PRN (18:45)
[2023-04-22] MEDS ORDERED: NALOXONE 0.4 MG/ML 1 ML VIAL IV PRN (18:45)
[2023-04-22] MEDS ORDERED: HYDROcodone/APAP 5-325MG 1 EACH TAB PO PRN (18:45)
[2023-04-22] MEDS ORDERED: HYDROcodone/APAP 10-325MG 1 EACH TAB PO PRN (18:45)
[2023-04-22] MEDS ORDERED: ONDANSETRON 4 MG/2 ML VIAL IVP PRN (18:45)
[2023-04-22] MEDS ORDERED: MAGNESIUM HYDROXIDE 2,400 MG/30 ML CUP PO PRN (18:45)
[2023-04-22] MEDS ORDERED: HYDROmorphone 1 MG/ML 1 ML SYRINGE IVP PRN (18:45)
[2023-04-22] MEDS ORDERED: hydrOXYzine pamoate 25 MG CAP PO PRN (18:45)
--- NOTE | 2023-04-22 18:45 | P.OP ---
Date of Procedure: 04/22/23 Preoperative Diagnosis: Severe left hip osteoarthritis Postoperative Diagnosis: Same Procedure(s) Performed: Left direct anterior total hip arthroplasty Implants: 1. Matthews Trident II Acetabular Cup, Size #52 2. Staci Insignia Size #5 Femoral Stem, High Offset 3. Biolox delta femoral head, 36 mm, - 5 mm neck Anesthesia: JINA, regional Surgeon: Roger Hunt Estimated Blood Loss (ml): 200 IV fluids (ml): 1,100 Pathology: none sent Condition: stable Disposition: PACU Indications for Procedure: I had a long discussion with the patient in the office on the potential risks and complications of an elective total hip replacement through a direct anterior approach. Risks discussed include, but are certainly not limited to, risks from anesthesia, superficial infection requiring local wound care or antibiotics, deep jein-prosthetic joint infection and the treatment required to eradicate infection, intraoperative fracture, postoperative periprosthetic fracture, damage to local blood vessels or nerves particularly the lateral femoral cutaneous nerve, delayed wound healing requiring local wound care or possibly surgical debridement, hip dislocation, leg length discrepancy, soft tissue irritation around the total hip implant such as iliopsoas tendinitis or trochanteric bursitis, wear and osteolysis from the implants, squeaking or audible noises, groin pain, thigh pain, heterotopic ossification, stiffness, ase ptic loosening of the implants, dissatisfaction with surgical outcome, need for revision surgery, DVT, PE, swelling of the operative extremity, acute coronary event, stroke, failure to thrive, and possibly loss of life or limb. The patient understands that while these are the most common complications after an elective hip replacement there are certainly other less common complications possible. They were given ample time to ask questions regarding the potential complications of a hip replacement. Following our discussion the patient provided their verbal and written consent to go forward with an elective total hip replacement. Operative Findings: Arthritic changes throughout the hip with full-thickness cartilage loss on the superior weightbearing portion of femoral head and diffuse arthritic changes throughout the acetabulum Description of Procedure: The patient was identified in the preoperative holding area and the correct hip was marked with my initials. I reviewed the procedure and consent with the patient. All of their questions were answered. The patient was then brought back into the operating room by anesthesia. While on the [facility] anesthesia was administered by the anesthesia team. Preoperative antibiotics and tranexamic acid were also given. After the patient was under anesthesia I examined their ankles to determine their preoperative leg length discrepancy. The skin over the anterior aspect of the hip was shaved to remove hair over the site of planned incision. Both feet and ankles were padded with webril and boots for the Providence were applied. The patient was then carefully transferred onto the [place] table. A perineal post was immediately placed. The arms were placed on arm holders and were well-padded. Both boots were secured to the spars on the Providence table. The patient was positioned so that the pelvis was centered over the post. Nonsterile drapes were applied. A timeout was performed identifying the correct patient, operative extremity, and procedure. At this point fluoroscopy was brought in to take preoperative images of the pelvis and operative hip. Using the standing AP pelvis from the office as a template, a comparable image was obtained with fluoroscopy. A metallic bar was used to create a bi-ischial line for use as a reference to leg length adjustments during the procedure. Global offset was also measured on both the operative and nonoperative leg. Fluoroscopy was then brought out and a pre-scrub using a chlorhexidine scrub brush was performed. The operative limb was then prepped and draped in the standard sterile fashion. An anterior longitudinal incision was made lateral and distal to the ASIS. The skin and subcutaneous tissues were incised sharply. The underlying tensor fascia was identified and incised in its midportion. The fascia was dissected free from the underlying muscle and the muscle belly was retracted. A blunt tipped cobra retractor was placed over the superior neck under the muscle fibers of the gluteus minimus. The deep enveloping fascia of the tensor was incised. The anterior leash of vessels were then identified and cauterized. The fascia between the rectus and the capsule was then incised and the pre-capsular fat was excised. A second Cobra was placed inferior to the neck. The interval between the rectus and iliocapsularis and the hip capsule was developed and a retractor was placed carefully over the anterior rim of the acetabulum. A T-shaped anterior capsulotomy was performed. The superior capsular leaflet was left in place in the inferior capsular flap was excised. The Cobra retractors were placed intracapsularly. We then made a femoral neck osteotomy according to preoperative and intraoperative templating and confirmed the level of the osteotomy using fluoroscopic imaging. The femoral head was removed, passed off to the back table, and sized. The superior capsular flap was excised. Retractors were placed circumferentially exposing the acetabulum. We then circumferentially debrided the acetabulum free of labrum and osteophytes. The pulvinar was removed to fully visualize the cotyloid fossa. We then sequentially reamed to achieve peripheral fit and excellent bleeding subchondral bone. The socket was thoroughly irrigated. The acetabular component was impacted into the appropriate position using fluoroscopy to guide version, inclination, and depth of insertion taking care to have a comparable image of the AP pelvis to the standing image taken in the office. An excellent press-fit was achieved and final position was confirmed using fluoroscopy. The press fit was augmented with bony cancellus dome screws. The liner was then impacted into the socket. Attention was then turned to the femur. The remnant dorsal lateral capsule was excised. The short external rotators were visible and protected. A bone hook was used to confirm appropriate translation of the trochanter away from the acetabulum. The leg was then extended and adducted and the bone hook was used to elevate the femur for broaching. A box osteotome and blunt tipped canal sound was then utilized to gain access to the femoral canal. We then sequentially broached the femur in appropriate anteversion until excellent torsional stability was achieved. The neck cut was brought flush to the trial broach with a calcar planar. A trial neck and head were then placed onto the broach and the hip was atraumatically reduced under direct visualization. External rotation to 90 was performed to assess stability. Fluoroscopy was brought in. An AP and lateral fluoroscopic image of the proximal femur was obtained to assess position and fill of the trial broach. An AP of the pelvis was then obtained and matched to the preoperative image taken. A bi-ischial bar was then placed and measurements were taken to assess changes in length and offset. The hip was then carefully dislocated, the proximal femur was exposed, and the trial implants were removed. The wound and proximal femur was thoroughly irrigated using sterile saline and pulsatile lavage. The final femoral implant was dispensed and gently tapped into place generating an excellent press-fit. The trunnion was cleansed and the final head was tapped into place to engage the [place] taper. The acetabulum was irrigated and visualized to be free of debris. The hip was carefully reduced. Stability was checked clinically with external rotation to 90 and there was no evidence of instability. Final fluoroscopic images were taken. The wound was then thoroughly irrigated and soaked with a dilute Betadine rinse for 3 minutes. 3 L of sterile saline was irrigated through the wound using pulsatile lavage. Local anesthetic cocktail was injected into the soft tissues around the surgical field. The wound was then closed in layers. A sterile dressing was placed over the surgical incision. The drapes were taken down and the patient was carefully transferred off of the Providence table. Following removal of the boots the leg lengths felt acceptable. The patient was then taken to recovery room having tolerated the procedure well. PLAN: The patient can weight-bear as tolerated on the operative extremity. DVT prophylaxis with aspirin 81 mg twice a day based on preoperative risk stratification. Physical therapy for gait training.
[2023-04-22] MEDS: HYDROmorphone 0.5 MG/0.5 ML SYRINGE IVP PRN ×2 (18:53→19:11)
--- NOTE | 2023-04-22 19:01 | XR ---
Fluoroscopy INDICATION: Pain FINDINGS: Fluoroscopy time: 1 minute 15.2 seconds. Total dose area product (DAP) in uGy*m?, mGy*cm? (or similar): 2.9535 Images obtained: 16. IMPRESSION: 1. Documentation of fluoroscopy.
[2023-04-22] MEDS ORDERED: SENNOSIDES-DOCUSATE SODIUM 1 EACH TAB PO SCH (21:00)
[2023-04-22] MEDS: ASPIRIN 81 MG PO SCH (21:29)
[2023-04-22] MEDS: SODIUM CHLORIDE 0.9% 1,000 ML IV SCH (22:06)
[2023-04-23 01:57] VITALS: TEMP 97.6
--- NOTE | 2023-04-23 05:12 | P.CONS ---
History of Present Illness - Reason for Consult Consult date: 04/22/23 Medical management - Chief Complaint Left hip scheduled total arthroplasty - History of Present Illness 67-year-old female with hypertension She comes in for scheduled left total hip arthroplasty. She tolerated procedure well no observed immediate postoperative consultations denies any chest pain shortness of breath nausea vomiting. Tolerated by mouth intake. She ambulated using the walker with assistance. She was able to urinate. Denies any chest pain abdominal pain shortness of breath fevers chills. Denies any tobacco smoking illicit drugs or heavy alcohol review of systems Pertinent positives as noted in HPI. All other systems were reviewed and are negative on exam Constitutional: No acute distress, conversant, pleasant Eyes: Anicteric sclerae, moist conjunctiva, Pupils equal round reactive to light ENMT: NC/AT Oropharynx clear, no erythema, or exudates Neck: Supple, no masses, or JVD No carotid bruits No thyromegaly Lungs: Clear to auscultation Clear to percussion Normal respiratory effort, no accessory muscle use Cardiovascular: Heart regular in rate and rhythm, No murmurs, gallops, or rubs No peripheral edema Abdominal: Soft Nontender, no guarding, rebound or rigidity Abdomen moving with respiration Normoactive bowel sounds No hepatomegaly, No splenomegaly No palpable mass No abdominal wall hernia noted Extremities: Left hip surgical wound with surgical dressing looks clean dry and intact No digital cyanosis No clubbing Pedal pulses intact and symmetrical Radial pulses intact and symmetrical No calf tenderness Psychiatric: Alert and oriented to person, place and time Appropriate affect fair judgement Neuro Muscles Strength 5/5 in all 4 extremities Sensation to light touch grossly present throughout Cranial nerves II-XII grossly intact Past Medical History Past Medical History: Hyperlipidemia, Hypertension, Osteoarthritis (OA) Additional Past Medical History / Comment(s): Migraines History of Any Multi-Drug Resistant Organisms: None Reported Past Surgical History: Adenoidectomy, Breast Surgery, Hysterectomy, Joint Replacement, Tonsillectomy Additional Past Surgical History / Comment(s): L Breast I&D; cysts above eye removed; colonoscopies, rt total knee Past Anesthesia/Blood Transfusion Reactions: Motion Sickness Past Psychological History: No Psychological Hx Reported Smoking Status: Former smoker Past Alcohol Use History: Rare Additional Past Alcohol Use History / Comment(s): smoked as teen occassionally Past Drug Use History: None Reported - Past Family History Father Family Medical History: Cancer Additional Family Medical History / Comment(s): colon cancer Mother Family Medical History: Cancer Additional Family Medical History / Comment(s): THYROID Daughter(s) Family Medical History: Blood Disorder Additional Family Medical History / Comment(s): SOME CLOTTING DISORDER-NOT SURE OF THE NAME (NOT FACTOR V) Medications and Allergies Home Medications Medication Instructions Recorded Confirmed Type Rizatriptan Benzoate [Maxalt] 10 mg PO DAILY PRN 09/30/16 04/16/23 History Simvastatin 40 mg PO HS 09/30/16 04/16/23 History Cholecalciferol [Vitamin D3 (25 1,000 unit PO DAILY 02/05/17 04/16/23 History Mcg = 1000 Iu)] Glucosam/Corbin-Msm1/C/Ry/Bosw 1 tab PO BID 02/05/17 04/16/23 History [Glucosamine-Chondroitin Tablet] Metoprolol Tartrate [Lopressor] 12.5 mg PO DAILY 02/05/17 04/16/23 History Aspirin [Adult Low Dose Aspirin EC] 81 mg PO DAILY 04/14/18 04/16/23 History Acetaminophen [Tylenol Extra 1,000 mg PO DAILY PRN 04/16/23 04/16/23 History Strength] Calcium Carbonate/Vitamin D3 1 each PO DAILY 04/16/23 04/16/23 History [Calcium 600 mg-D3 10 Mcg (400 Iu)] Ibuprofen [Motrin Ib] 400 mg PO DAILY PRN 04/16/23 04/16/23 History Magnesium 250 mg PO DAILY 04/16/23 04/16/23 History Multivit with Calcium,Iron,Min 1 each PO DAILY 04/16/23 04/16/23 History [Women's Multivitamin] [place]-3/Dha/Epa/Fish Oil [Fish Oil 1 each PO DAILY 04/16/23 04/16/23 History 1,000 mg Softgel] Allergies Allergy/AdvReac Type Severity Reaction Status Date / Time latex Allergy Anaphylaxis Verified 04/22/23 14:07 tuberculin,PPD,multi-puncture Allergy Swelling Verified 04/22/23 14:07 Physical Exam Vitals: Vital Signs Temp Pulse Resp BP Pulse Ox 04/23/23 01:38 97.6 F 82 103/62 96 04/22/23 21:17 61 108/72 97 04/22/23 21:02 61 108/70 97 04/22/23 20:47 60 107/69 98 04/22/23 20:32 57 L 106/69 98 04/22/23 20:17 56 L 107/70 95 04/22/23 20:02 55 L 105/57 04/22/23 20:00 97.9 F 53 L 116/61 96 04/22/23 19:25 52 L 19 105/58 96 04/22/23 19:10 59 L 14 106/60 96 04/22/23 18:55 61 12 117/62 98 04/22/23 18:40 97.1 F L 79 16 108/60 96 04/22/23 15:11 78 16 165/78 97 04/22/23 14:14 97.7 F 72 16 188/86 98 Intake and Output 04/22/23 04/22/23 04/23/23 14:59 22:59 06:59 Intake Total 300 1550 Output Total 200 Balance 300 1350 Intake: IV 300 1550 Output: Estimated Blood Loss 200 Other: Voiding Method Toilet # Voids 1 Weight 78 kg 78 kg Assessment and Plan Assessment: Left total hip arthroplasty postoperative day 0 Pain control DVT prophylaxis management per orthopedic primary team Hypertension Blood pressure controlled Continue with metoprolol 12.5 mg daily home medication Hyperlipidemia Continue simvastatin 40 mg by mouth daily at bedtime Follow-up BMP and CBC in the morning postop Patient stable from medical standpoint Thank you for this consultation
[2023-04-23] MEDS: SODIUM CHLORIDE 0.9% 1,000 ML IV SCH ×2 (07:59→08:11)
[2023-04-23] MEDS: LACTATED RINGERS 1,000 ML IV SCH (08:00)
--- NOTE | 2023-04-23 08:01 | P.DS ---
Providers Date of admission: 04/22/2023 Attending physician: Roger Hunt Consults: 04/22/23 18:45 Consult Physician Routine Consulting Provider: Yojana Meyer Consult Reason/Comments: post op medical management Do you want consulting provider notified?: Yes Primary care physician: Sara Norris [facility] Hospital Course: The patient is a very pleasant 59-year-old female who was admitted under my care yesterday. Following an uncomplicated total hip replacements was transferred to the orthopedic floor in stable condition. She received 2 doses of IV antibiotics. She was transitioned from IV to oral pain medication. She was seen on postoperative day #1 and was doing well. Internal medicine was consulted for perioperative medical management. She worked with physical therapy and did well. She was ultimately cleared for discharge home. Plan - Discharge Summary Discharge Rx Participant: Yes New Discharge Prescriptions: New HYDROcodone/APAP 5-325MG [[facility] 5-325] 1 - 2 tab PO Q6HR PRN #32 tab PRN Reason: Pain Aspirin 81 mg PO BID #60 tab Docusate [Colace] 100 mg PO BID #30 capsule Omeprazole 40 mg PO DAILY #30 cap Diclofenac Sodium [Voltaren] 75 mg PO BID #60 tab Ondansetron [Zofran] 4 mg PO Q8HR PRN #20 tab PRN Reason: Nausea No Action Simvastatin 40 mg PO HS Rizatriptan Benzoate [Maxalt] 10 mg PO DAILY PRN PRN Reason: migraines Glucosam/Corbin-Msm1/C/Ry/Bosw [Glucosamine-Chondroitin Tablet] 1 tab PO BID Cholecalciferol [Vitamin D3 (25 Mcg = 1000 Iu)] 1,000 unit PO DAILY Metoprolol Tartrate [Lopressor] 12.5 mg PO DAILY Aspirin [Adult Low Dose Aspirin EC] 81 mg PO DAILY Acetaminophen [Tylenol Extra Strength] 1,000 mg PO DAILY PRN PRN Reason: Pain Calcium Carbonate/Vitamin D3 [Calcium 600 mg-D3 10 Mcg (400 Iu)] 1 each PO DAILY Ibuprofen [Motrin Ib] 400 mg PO DAILY PRN PRN Reason: Pain Magnesium 250 mg PO DAILY [place]-3/Dha/Epa/Fish Oil [Fish Oil 1,000 mg Softgel] 1 each PO DAILY Multivit with Calcium,Iron,Min [Women's Multivitamin] 1 each PO DAILY Discharge Medication List Rizatriptan Benzoate [Maxalt] 10 mg PO DAILY PRN 09/30/16 [History] Simvastatin 40 mg PO HS 09/30/16 [History] Cholecalciferol [Vitamin D3 (25 Mcg = 1000 Iu)] 1,000 unit PO DAILY 02/05/17 [History] Glucosam/Corbin-Msm1/C/Ry/Bosw [Glucosamine-Chondroitin Tablet] 1 tab PO BID 02/05/17 [History] Metoprolol Tartrate [Lopressor] 12.5 mg PO DAILY 02/05/17 [History] Aspirin [Adult Low Dose Aspirin EC] 81 mg PO DAILY 04/14/18 [History] Acetaminophen [Tylenol Extra Strength] 1,000 mg PO DAILY PRN 04/16/23 [History] Calcium Carbonate/Vitamin D3 [Calcium 600 mg-D3 10 Mcg (400 Iu)] 1 each PO DAILY 04/16/23 [History] Ibuprofen [Motrin Ib] 400 mg PO DAILY PRN 04/16/23 [History] Magnesium 250 mg PO DAILY 04/16/23 [History] Multivit with Calcium,Iron,Min [Women's Multivitamin] 1 each PO DAILY 04/16/23 [History] [place]-3/Dha/Epa/Fish Oil [Fish Oil 1,000 mg Softgel] 1 each PO DAILY 04/16/23 [History] Aspirin 81 mg PO BID #60 tab 04/23/23 [Rx] Diclofenac Sodium [Voltaren] 75 mg PO BID #60 tab 04/23/23 [Rx] Docusate [Colace] 100 mg PO BID #30 capsule 04/23/23 [Rx] HYDROcodone/APAP 5-325MG [[facility] 5-325] 1 - 2 tab PO Q6HR PRN #32 tab 04/23/23 [Rx] Omeprazole 40 mg PO DAILY #30 cap 04/23/23 [Rx] Ondansetron [Zofran] 4 mg PO Q8HR PRN #20 tab 04/23/23 [Rx] Follow up Appointment(s)/Referral(s): Roger Hunt MD [Medical Doctor] - 2 Weeks Activity/Diet/Wound Care/Special Instructions: 1. Weight-bear as tolerated on your operative extremity unless instructed otherwise. Use a walker or other assistive device to ambulate. 2. Leave surgical dressing in place. If your dressing becomes saturated with blood, there is drainage, or the dressing becomes loose please contact the office. 3. It is okay to shower with your surgical dressing, but do not submerge in water (no hot tubs, bath's, swimming etc.) 4. Make sure to take her blood clot prevention medication as prescribed (aspirin, Eliquis, Xarelto, and Plavix are commonly prescribed medications for blood clot prevention) 5. While taking [facility] Joseph or Percocet for pain make sure you're taking a stool softener (Colace) and drink lots of water. 6. Keep all follow-up appointments as scheduled. You will usually be seen in 1-2 weeks following surgery. 7. Please contact the office with any questions or concerns [phone] Discharge Disposition: HOME SELF-CARE
[2023-04-23] MEDS: ASPIRIN 81 MG PO SCH (08:09)
--- NOTE | 2023-04-23 08:21 | FL ---
EXAMINATION TYPE: FL guidance operating room DATE OF EXAM: 04/22/2023 HISTORY: Fluoroscopy time Total dose area product (DAP) in uGy*m?, mGy*cm? (or similar): 2.9535 IMPRESSION: 1. Fluoroscopy time.
[2023-04-23] MEDS ORDERED: METOPROLOL TARTRATE 12.5 MG TAB PO SCH (09:00)
[2023-04-23 09:12] VITALS: BP 132/74; PULSE 109; RESP 16
--- NOTE | 2023-04-23 11:00 | P.PN ---
Subjective Progress Note Date: 04/23/23 Subjective: Patient seen and examined at bedside. No acute events overnight. Denies any significant pain. Pertinent positives and negatives as discussed above, a complete review of systems was performed and all other systems are negative. Vitals Signs Reviewed. General: nontoxic, no distress], appears at stated age Derm: warm, dry, dressing clean, dry, intact Head: atraumatic, normocephalic, symmetric Eyes: EOMI, no lid lag, anicteric sclera Mouth: no lip lesion, mucus membranes moist Cardiovascular: S1S2 reg, no murmur Lungs: CTA bilateral, no rhonchi, no rales , no accessory muscle use Abdominal: soft, nontender to palpation, no guarding, no appreciable organomegaly Ext: no gross muscle atrophy, no edema, no contractures Neuro: CN II-XI grossly intact, no focal neuro deficits Psych: Alert, oriented, appropriate affect Data Reviewed Today: Pertinent Labs: CBC and CMP pending, will be reviewed when available Imaging: No new imaging Assessment and Plan: Status post Left total hip arthroplasty Pain control DVT prophylaxis management per orthopedic primary team Hypertension Blood pressure controlled Continue with metoprolol 12.5 mg daily home medication Hyperlipidemia Continue simvastatin 40 mg by mouth daily at bedtime Patient is otherwise medically optimized for discharge. Thank you for allowing us to participate in the care of this pleasant patient. Do not hesitate to contact us with questions. Someone can be reached from the [facility] hospitalist group all hours of the day at [phone] or via perfect serve. Objective - Vital Signs Vital signs: Vital Signs Temp 97.6 F 04/23/23 07:12 Pulse 109 H 04/23/23 07:12 Resp 16 04/23/23 07:12 BP 132/74 04/23/23 07:12 Pulse Ox 97 04/23/23 07:12 FiO2 Intake & Output 04/22/23 04/23/23 04/23/23 18:59 06:59 18:59 Intake Total 1850 Output Total 200 Balance 1650 Weight 78 kg 78 kg Intake: IV 1850 Output: Estimated Blood Loss 200 Other: Voiding Method Toilet # Voids 1 1
[2023-04-23 11:07] LABS: Basophils # (A) 0.02 X 10*3/uL (0.00-0.10); Basophils % (A) 0.1 %; Eosinophils # (A) 0 X 10*3/uL (0.04-0.35); Eosinophils % (A) 0 %; HCT 33.5 % (37.2-46.3); HGB 11.2 g/dL (12.0-15.0); Lymphocytes # (A) 1.21 X 10*3/uL (0.90-5.00); Lymphocytes % (A) 7.9 %; MCH 31.4 pg (27.0-32.0); MCHC 33.4 g/dL (32.0-37.0); MCV 93.8 FL (80.0-97.0); Mean Platelet Volume 9.8 FL (9.5-12.2); Monocytes # (A) 0.92 X 10*3/uL (0.20-1.00); NRBC Per 100 WBC 0 X 10*3/uL (0.00-0.01); Neutrophils # (A) 13.16 X 10*3/uL (1.80-7.70); Neutrophils % (A) 85.7 %; Platelet Count 318 X 10*3/uL (140-440); RBC 3.57 X 10*6/uL (4.10-5.20); RDW 12.6 % (11.5-14.5); WBC 15.36 X 10*3/uL (4.50-10.00)
[2023-04-23 11:22] LABS: ALT 14 U/L (8-44); AST 41 U/L (13-35); Albumin 3.7 g/dL (3.8-4.9); Albumin/Globulin Ratio 1.85 Ratio (1.60-3.17); Alkaline Phosphatase 67 U/L (41-126); BUN/Creat Ratio 17.78 Ratio (12.00-20.00); Calcium 9.3 mg/dL (8.7-10.3); Carbon Dioxide 22.1 mmol/L (21.6-31.8); Chloride 103 mmol/L (96-109); Glucose 129 mg/dL (70-110); Potassium 4.8 mmol/L (3.5-5.5); Sodium 137 mmol/L (135-145); Total Bilirubin 0.3 mg/dL (0.3-1.2); Total Protein 5.7 g/dL (6.2-8.2)
[2023-04-23] MEDS ORDERED: ATORVASTATIN 20 MG TAB PO SCH (21:00)
[2023-04-23] MEDS ORDERED: TEMAZEPAM 15 MG CAP PO PRN (22:00)
== END 2023-04-23 11:37 | disposition home or self-care (01) ==
LOC: OR 13:55 → 4SSUR 18:40 → OR 04-23 11:37
PROVIDERS: ATTEND Orthopaedic Surgery
DX: M16.12 Unilateral primary osteoarthritis, left hip (principal); E78.5 Hyperlipidemia, unspecified; I10 Essential (primary) hypertension; Z79.899 Other long term (current) drug therapy; Z87.891 Personal history of nicotine dependence; Z91.040 Latex allergy status; Z96.642 Presence of left artificial hip joint
CPT/HCPCS: 27130; 97161; 64447; 80053; 85025; 73501; C1776; J2250; J0330; J1100; J2710; J0690 ×2; J2405; J2001; J3010 ×2; J3490; J2795; J1885; J2704; J1170

== ENCOUNTER → 2023-06-16 | Outpatient (CLI) | payer MEDICARE ==
--- NOTE | 2023-06-17 14:48 | MM ---
Reason for Exam: Screening (asymptomatic). Last mammogram was performed 1 year(s) and 2 month(s) ago. Patient History: Menarche at age 9. First Full-Term at age 19. Hysterectomy at age 36. Postmenopausal. Patient has history of breast feeding. Maternal grandmother had breast cancer, age 30. Maternal cousin had breast cancer, age 30. Risk Values: Catrachita 5 year model risk: 1.7%. NCI Lifetime model risk: 5.2%. Prior Study Comparison: 03/16/2020 Bilateral Screening Mammogram, [facility]. 03/22/2021 Bilateral Screening Mammogram, [facility]. 04/18/2022 Bilateral MG 3D screening mammo w/cad, [facility]. Tissue Density: There are scattered fibroglandular densities. Findings: Analyzed By CAD. There is no suspicious group of microcalcifications or new suspicious mass. Overall Assessment: Negative, BI-RAD 1 Management: Screening Mammogram of both breasts in [address] [facility] will attempt to contact patient to return for supplemental views and ultrasound if indicated. Patient should continue monthly self-breast exams. A clinical breast exam by your physician is recommended on an annual basis. This exam should not preclude additional follow-up of suspicious palpable abnormalities. Note on Catrachita scores and lifetime risk: 1. A Catrachita score greater than 3% is considered moderate risk. If this is the case, consider specialist referral to assess eligibility for a risk reducing agent. 2. If overall lifetime risk for the development of breast cancer is 20% or higher, the patient may qualify for future screening with alternating mammogram and breast MRI. Electronically signed and approved by: Ron Winston DO
== END | disposition home or self-care (01) ==
LOC: RADMAMWWP 10:34
PROVIDERS: ATTEND Internal Medicine
DX: Z12.31 Encounter for screening mammogram for malignant neoplasm of breast (principal); Z78.0 Asymptomatic menopausal state; Z80.3 Family history of malignant neoplasm of breast
CPT/HCPCS: 77063; 77067

== ENCOUNTER 2023-07-22 08:16 | Day surgery (SDC) | payer MEDICARE ==
[2023-07-20 16:21] VITALS: BMI 28.3
[~2023-07-22 08:16] MED LIST changes: -DEXAMETHASONE SOD PHOSPHATE 4 MG/ML 1 ML VIAL IV ONE; -MIDAZOLAM 2 MG/2 ML VIAL IV PRN; -ONDANSETRON 4 MG/2 ML VIAL IVP ONE; -ONDANSETRON 4 MG/2 ML VIAL IVP PRN; -TRANEXAMIC 1,000 MG/100ML-NACL 1,000 MG in SALINE 1 100ML.BAG IV PRN; -TRANEXAMIC 1,000 MG/100ML-NACL 1,000 MG in SALINE 1 100ML.BAG IVPB PRN
[2023-07-22] MEDS: LACTATED RINGERS 1,000 ML IV SCH (08:49)
[2023-07-22 09:24] VITALS: RESP 14; TEMP 97.4
[2023-07-22] MEDS ORDERED: PROPOFOL 10 MG/ML 20 ML VIAL IV ONE (09:26)
--- NOTE | 2023-07-22 10:06 | P.PCN ---
Date of Procedure: 07/22/23 Procedure(s) Performed: BRIEF HISTORY: Patient is a 68-year-old pleasant white female scheduled for an elective colonoscopy as a part of screening for colon cancer and family history of colon cancer. Her father was diagnosed with colon cancer at age 64. PROCEDURE PERFORMED: Colonoscopy with snare polypectomy. PREOPERATIVE DIAGNOSIS: Screening for colon cancer and family history of colon cancer. IV sedation per Anesthesia. PROCEDURE: After informed consent was obtained, the patient, was brought into the endoscopy unit. IV sedation was administered by Anesthesia under continuous monitoring. Digital rectal examination was normal. Initially the Olympus CF-160 flexible video colonoscope was then inserted in the rectum, gradually advanced into the cecum without any difficulty. Careful examination was performed as the scope was gradually being withdrawn. Ileocecal valve and the appendiceal orifice were visualized and appeared normal. Prep was excellent. Mucosa of the cecum, had a 1.5 and admitted flat polyp that was removed by snare polypectomy. Rest of the ascending colon, transverse colon, descending colon, sigmoid colon, and rectum appeared normal. Scattered sigmoid diverticulosis. Retroflexion was performed in the rectum and no lesions were seen. The patient tolerated the procedure well. IMPRESSION: 1.5 cm flat polyp status post snare polypectomy Scattered sigmoid diverticulosis RECOMMENDATIONS: Findings of this examination were discussed with the patient as well as a family. She was advised to follow with the biopsy results and if the biopsy results and have a repeat colonoscopy in 3 years.
[2023-07-22 10:36] VITALS: BP 106/66; PULSE 70
== END 2023-07-22 10:38 | disposition home or self-care (01) ==
LOC: ORWHC2ENDO 08:16
PROVIDERS: ATTEND Internal Medicine Gastroenterology
DX: Z12.11 Encounter for screening for malignant neoplasm of colon (principal); D12.0 Benign neoplasm of cecum; K57.30 Diverticulosis of large intestine without perforation or abscess without bleeding; I10 Essential (primary) hypertension; E78.5 Hyperlipidemia, unspecified; Z80.0 Family history of malignant neoplasm of digestive organs; Z79.82 Long term (current) use of aspirin; Z79.899 Other long term (current) drug therapy; Z91.040 Latex allergy status; G43.909 Migraine, unspecified, not intractable, without status migrainosus; Z96.652 Presence of left artificial knee joint; Z98.890 Other specified postprocedural states
CPT/HCPCS: 45385; J2704; 88305

== ENCOUNTER → 2023-09-29 | Outpatient (CLI) | payer MEDICARE ==
--- NOTE | 2023-09-29 21:07 | US ---
EXAMINATION TYPE: US thyroid st tissue head/neck DATE OF EXAM: 09/29/2023 COMPARISON: NONE CLINICAL INDICATION: Female, 68 years old with history of E04.9 NONTOXIC GOITER, UNSPECIFIED; Goiter GLAND SIZE: Right Lobe: 5.5 x 2.6 x 3.3 cm Overall Parenchyma: heterogeneous Left Lobe: 5.2 x 1.3 x 1.6 cm Overall Parenchyma: heterogeneous Isthmus Thickness: 0.3 cm NODULES RIGHT: # of nodules measured on right: 3 1. 1.4 X 1.4 x 1.5 cm, upper , Prior size: no prior TIRADS Score: 4 TIRADS Category 4: Composition: Solid or almost completely solid (2 points). Echogenicity: Hypoechoic (2 points). Shape: Wider than tall (0 points). Margin: Smooth (0 points). Echogenic foci: None or large comet-tail artifacts (0 points) Recommendation: If >1.5cm: FNA; If >1cm: Follow up at 1,2, 3,5 years 2. 1.5 X 0.7 x 1.5 cm, posterior mid , Prior size: no prior TIRADS Score: 3 TIRADS Category 3: Composition: Solid or almost completely solid (2 points). Echogenicity: Hyperechoic or isoechoic (1 point). Shape: Wider than tall (0 points). Margin: Smooth (0 points). Echogenic foci: None or large comet-tail artifacts (0 points) Recommendation: If >2.5cm: FNA; If >1.5cm: Follow up at 1,3,5 years 3. 3.2 X 2.2 x 3.2 cm, mid/lower , Prior size: no prior TIRADS Score: 3 TIRADS Category 3: Composition: Solid or almost completely solid (2 points). Echogenicity: Hyperechoic or isoechoic (1 point). Shape: Wider than tall (0 points). Margin: Smooth (0 points). Echogenic foci: None or large comet-tail artifacts (0 points) Recommendation: If >2.5cm: FNA; If >1.5cm: Follow up at 1,3,5 years LEFT: # of nodules measured on left: multiple sub-centimeter nodules visualized, largest measured 1. 1.1 X 0.7 x 0.8 cm, mid, solid or almost completely solid, hypoechoic nodule, which is wider florencia n tall, with smooth margins, without echogenic foci. Prior size: no prior TIRADS Score: 4 TIRADS Category 4: Composition: Solid or almost completely solid (2 points). Echogenicity: Hypoechoic (2 points). Shape: Wider than tall (0 points). Margin: Smooth (0 points). Echogenic foci: None or large comet-tail artifacts (0 points) Recommendation: If >1.5cm: FNA; If >1cm: Follow up at 1,2, 3,5 years ISTHMUS: # of nodules measured in the isthmus: 0 Bilateral neck scanned, no evidence of lymphadenopathy. IMPRESSION: Bilateral thyroid nodules. A right thyroid nodule measuring up to 3.2 cm meets criteria for FNA if no t already performed.
== END | disposition home or self-care (01) ==
LOC: RADUSWWP 13:25
PROVIDERS: ATTEND Internal Medicine
DX: E04.2 Nontoxic multinodular goiter (principal)
CPT/HCPCS: 76536

== ENCOUNTER 2023-10-16 12:13 | Day surgery (SDC) | payer MEDICARE ==
[2023-10-16 12:50] VITALS: BP 189/86; PULSE 63; RESP 16; TEMP 97.4
--- NOTE | 2023-10-16 14:47 | US ---
EXAMINATION TYPE: US FNA thyroid first lesion, US FNA thyroid each add lesion DATE OF EXAM: 10/16/2023 2:16 PM CLINICAL INDICATION:Female, 68 years old with history of E04.9 NONTOXIC GOITER, UNSPECIFIED; , thyroi d nodule. COMPARISON: 09/29/2023 ATTENDING: Dr. Ron Winston PROCEDURE: Informed consent was obtained. The risks and benefits of the procedure were discussed with the patien t. The site was marked. Timeout procedure was performed Ultrasound imaging of the thyroid demonstrates multiple right-sided thyroid nodules The patient was prepped, draped in the usual sterile fashion, and locally anesthetized with 1% lidoca ine. Five fine needle aspiration were then performed with a 25 gauge needle right upper TI-RADS 4 no dule. Attention was then taken to the larger TI-RADS 3 nodule and5 fine needle aspiration were then performed with a 25 gauge needle Samples were sent to the pathology department for further analysis. Patient tolerated the procedure without incident and was sent home in stable condition. IMPRESSION: Successful ultrasound guided fine needle aspiration of right upper and right mid thyroid nodules.
== END 2023-10-16 14:18 | disposition home or self-care (01) ==
LOC: RADPROMAIN 12:13
PROVIDERS: ATTEND Internal Medicine
DX: E04.2 Nontoxic multinodular goiter (principal)
CPT/HCPCS: 10005; 10006; 88173; 88305

== ENCOUNTER → 2024-02-12 | Outpatient (CLI) | payer MEDICARE ==
[2024-02-12 15:49] LABS: ALT 10 U/L (8-44); AST 24 U/L (13-35); Albumin 4.4 g/dL (3.8-4.9); Albumin/Globulin Ratio 1.83 Ratio (1.60-3.17); Alkaline Phosphatase 90 U/L (41-126); Blood Urea Nitrogen 16.5 mg/dL (9.0-27.0); Carbon Dioxide 26.7 mmol/L (21.6-31.8); Chloride 103 mmol/L (96-109); Globulin 2.4 g/dL (1.6-3.3); Glucose 99 mg/dL (70-110); Phosphorus 3.8 mg/dL (2.4-5.1); Potassium 4.6 mmol/L (3.5-5.5); Sodium 140 mmol/L (135-145); T4, Free (Free Thyroxine) 1.66 ng/dL (0.80-1.80); Total Bilirubin 0.3 mg/dL (0.3-1.2); Total Protein 6.8 g/dL (6.2-8.2)
== END | disposition home or self-care (01) ==
LOC: LABWHC1 10:03
PROVIDERS: ATTEND Internal Medicine Endocrinology, Diabetes & Metabolism
DX: C73 Malignant neoplasm of thyroid gland (principal); E89.0 Postprocedural hypothyroidism
CPT/HCPCS: 36415; 80053; 84100; 84432; 84439; 84443

== ENCOUNTER → 2024-07-11 | Outpatient (CLI) | payer MEDICARE ==
[2024-07-11 16:59] LABS: Basophils # (A) 0.05 X 10*3/uL (0.00-0.10); Basophils % (A) 0.7 %; Eosinophils # (A) 0.09 X 10*3/uL (0.04-0.35); Eosinophils % (A) 1.2 %; HCT 41.6 % (37.2-46.3); HGB 13.4 g/dL (12.0-15.0); Lymphocytes # (A) 2.15 X 10*3/uL (0.90-5.00); Lymphocytes % (A) 29.2 %; MCH 30.4 pg (27.0-32.0); MCHC 32.2 g/dL (32.0-37.0); MCV 94.3 FL (80.0-97.0); Mean Platelet Volume 10.5 FL (9.5-12.2); Monocytes # (A) 0.64 X 10*3/uL (0.20-1.00); Monocytes % (A) 8.7 %; NRBC Per 100 WBC 0 X 10*3/uL (0.00-0.01); Neutrophils # (A) 4.41 X 10*3/uL (1.80-7.70); Neutrophils % (A) 59.9 %; Platelet Count 378 X 10*3/uL (140-440); RBC 4.41 X 10*6/uL (4.10-5.20); WBC 7.36 X 10*3/uL (4.50-10.00)
[2024-07-11 18:12] LABS: T4, Free (Free Thyroxine) 1.45 ng/dL (0.80-1.80)
[2024-07-11 18:23] LABS: ALT 13 U/L (8-44); AST 25 U/L (13-35); Albumin 4.4 g/dL (3.8-4.9); Albumin/Globulin Ratio 1.83 Ratio (1.60-3.17); Alkaline Phosphatase 103 U/L (41-126); Blood Urea Nitrogen 15.9 mg/dL (9.0-27.0); Calcium 9.9 mg/dL (8.7-10.3); Carbon Dioxide 26.3 mmol/L (21.6-31.8); Chloride 104 mmol/L (96-109); Chol/HDL Ratio 3.51 Ratio; Globulin 2.4 g/dL (1.6-3.3); Glucose 92 mg/dL (70-110); LDL Cholesterol,Calculated 105.8 mg/dL (0.0-131.0); Potassium 4.6 mmol/L (3.5-5.5); Sodium 139 mmol/L (135-145); Total Bilirubin 0.3 mg/dL (0.3-1.2); Total Protein 6.8 g/dL (6.2-8.2)
== END | disposition home or self-care (01) ==
LOC: LABWHC1 09:30
PROVIDERS: ATTEND Internal Medicine
DX: I10 Essential (primary) hypertension (principal); E89.0 Postprocedural hypothyroidism; E78.00 Pure hypercholesterolemia, unspecified; E55.9 Vitamin D deficiency, unspecified; E04.9 Nontoxic goiter, unspecified; C73 Malignant neoplasm of thyroid gland
CPT/HCPCS: 36415; 80053; 80061; 82306; 84439; 84443; 85025

== ENCOUNTER → 2024-07-11 | Outpatient (CLI) | payer MEDICARE ==
--- NOTE | 2024-07-11 18:05 | MM ---
Reason for Exam: Screening (asymptomatic). Last mammogram was performed 1 year(s) and 1 month(s) ago. Patient History: Menarche at age 9. First Full-Term at age 19. Hysterectomy at age 36. Postmenopausal. Patient has history of breast feeding. Maternal grandmother had breast cancer, age 30. Maternal cousin had breast cancer, age 30. Risk Values: Catrachita 5 year model risk: 1.7%. NCI Lifetime model risk: 5.0%. Prior Study Comparison: 03/22/2021 Bilateral Screening Mammogram, [facility]. 04/18/2022 Bilateral MG 3D screening mammo w/cad, [facility]. 06/16/2023 Bilateral MG 3D screening mammo w/cad, [facility]. Tissue Density: There are scattered areas of fibroglandular density. Findings: Analyzed By CAD. There is no suspicious group of microcalcifications or new suspicious mass in either breast. Overall Assessment: Negative, BI-RAD 1 Management: Screening Mammogram of both breasts in 1 year. Patient should continue monthly self-breast exams. A clinical breast exam by your physician is recommended on an annual basis. This exam should not preclude additional follow-up of suspicious palpable abnormalities. Note on Catrachita scores and lifetime risk: 1. A Catrachita score greater than 3% is considered moderate risk. If this is the case, consider specialist referral to assess eligibility for a risk reducing agent. 2. If overall lifetime risk for the development of breast cancer is 20% or higher, the patient may qualify for future screening with alternating mammogram and breast MRI. [facility], , 07/11/2024 6:02 PM. Electronically signed and approved by: Krystle Robertson M.D. Radiologist
== END | disposition home or self-care (01) ==
LOC: RADMAMWWP 10:17
PROVIDERS: ATTEND Internal Medicine
DX: Z12.31 Encounter for screening mammogram for malignant neoplasm of breast (principal); R92.323 Mammographic fibroglandular density, bilateral breasts; Z78.0 Asymptomatic menopausal state; Z80.3 Family history of malignant neoplasm of breast
CPT/HCPCS: 77063; 77067